=== PATIENT | female | born 1950 | race Caucasian/White ===

== ENCOUNTER → 2016-08-31 | Outpatient (CLI) | payer BC ==
[~2016-08-31] MED LIST: LEVAQUIN750 MG PO; PRAVASTATIN SOD20 MG PO
== END ==
LOC: RAD 11:49
DX: R05 Cough (principal); J44.9 Chronic obstructive pulmonary disease, unspecified; R91.8 Other nonspecific abnormal finding of lung field
CPT/HCPCS: 71020

== ENCOUNTER 2016-09-02 12:19 | Inpatient (IN) | payer BC ==
[~2016-09-02] VITALS: Ht 162.6 cm; Wt 59.0 kg
[2016-09-02] MEDS ORDERED: PRAVASTATIN SOD20 MG PO (16:11)
[2016-09-02 18:06] LABS: HEMOGLOBIN 13.7 gm/dl (12.3-15.3); RED BLOOD COUNT 4.32 M/UL (4.00-5.10); WHITE BLOOD COUNT 8.8 K/UL (4.5-11.0)
[2016-09-02 18:22] LABS: BUN/CREATININE RATIO 16 (0-10)
[2016-09-03 05:42] LABS: HEMOGLOBIN 12.1 gm/dl (12.3-15.3)
[2016-09-03 05:43] LABS: RED BLOOD COUNT 3.84 M/UL (4.00-5.10)
[2016-09-03 06:11] LABS: BUN/CREATININE RATIO 13 (0-10)
[2016-09-04] MEDS ORDERED: LEVAQUIN750 MG PO (18:06)
== END 2016-09-04 19:00 | disposition home or self-care (01) | DRG 193 ==
LOC: MED SURG 4 12:19
PROVIDERS: ADMIT Internal Medicine
DX: J18.9 Pneumonia, unspecified organism (principal); J96.01 Acute respiratory failure with hypoxia; J90 Pleural effusion, not elsewhere classified; E78.5 Hyperlipidemia, unspecified; F17.200 Nicotine dependence, unspecified, uncomplicated; Z79.899 Other long term (current) drug therapy; Z88.3 Allergy status to other anti-infective agents; Z98.890 Other specified postprocedural states; Z82.49 Family history of ischemic heart disease and other diseases of the circulatory system; Z80.1 Family history of malignant neoplasm of trachea, bronchus and lung; Z80.42 Family history of malignant neoplasm of prostate
CPT/HCPCS: 36415; 71020; 80048; 80053; 81001; 82550; 82553; 83735; 84484; 85025; 87040; 93005; 94640; 94664; G0378; G0379; J1956; J7030

== ENCOUNTER → 2016-10-07 | Outpatient (CLI) | payer BC | LOC: HEART 5 10:01 | DX: J18.9 Pneumonia, unspecified organism (principal) | CPT/HCPCS: 94060; 94729 ==

== ENCOUNTER → 2016-10-07 | Outpatient (CLI) | payer BC | LOC: RAD 11:34 | DX: J44.9 Chronic obstructive pulmonary disease, unspecified (principal); J98.4 Other disorders of lung | CPT/HCPCS: 71020 ==